=== PATIENT | male | born 1985 | race African-American/Black ===

== ENCOUNTER 2023-09-10 16:08 | Inpatient (IN) | payer OTHER ==
[2023-09-10 16:40] VITALS: BMI 22.2
[2023-09-10] MEDS ORDERED: BENZOCAINE/MENTHOL (CHLORASEPTIC ) LOZENGE MM PRN (18:39)
[2023-09-10] MEDS ORDERED: IBUPROFEN 400 MG TABLET (FP) PO PRN (18:39)
[2023-09-10] MEDS ORDERED: BENZONATATE 200 MG CAPSULE PO PRN (18:39)
[2023-09-10] MEDS ORDERED: guaiFENesin 600 MG TABLET.ER (FP) PO PRN (18:39)
[2023-09-10] MEDS ORDERED: ACETAMINOPHEN 325 MG TABLET (FP) PO PRN (18:39)
[2023-09-10] MEDS ORDERED: IBUPROFEN 600 MG TABLET (FP) PO PRN (18:39)
[2023-09-10] MEDS ORDERED: LOPERAMIDE HCL 2 MG CAPSULE PO PRN (18:39)
[2023-09-10] MEDS ORDERED: P-EPHED 60MG/TRIPROLIDI 2.5MG TABLET PO PRN (18:39)
[2023-09-10] MEDS ORDERED: POLYETHYLENE GLYCOL (HEALTHYLAX) 3350 17 GM PACKET PO PRN (18:39)
[2023-09-10] MEDS ORDERED: MAGNESIUM HYDROX 2400MG/30ML ORAL SUSPENSION 30 ML CUP PO PRN (18:39)
[2023-09-10] MEDS: MELATONIN 5 MG TABLETS PO SCH (21:44)
[2023-09-10] MEDS: THIAMINE 100 MG TABLET PO SCH (21:44)
[2023-09-10] MEDS: TUBERCULIN PPD 5 TU/0.1ML SYRINGE (IN PATIENT USE ONLY) ID ONE (21:45)
[2023-09-11] MEDS: PRENATAL VITAMINS W/ FOLIC ACID TABLET (FP) PO SCH (09:24)
[2023-09-11 13:26] LABS: POTASSIUM 3.7 mmol/L (3.5-5.1)
[2023-09-11 13:28] LABS: HEMATOCRIT 31.3 % (35.4-49); HEMOGLOBIN 10.4 GM/dL (11.7-16.9); MCH 29.2 pg (25.7-33.7); MCHC 33.2 g/dl (32.0-35.9); MEAN CELL VOLUME 87.9 fl (80-96); PLATELET COUNT 236 10^3/uL (134-434); RBC 3.56 M/mm3 (4.00-5.60); RDW 14.9 % (11.9-15.9); WHITE BLOOD COUNT 4.8 K/mm3 (4.0-10.0)
[2023-09-11 13:46] LABS: ALBUMIN 2.7 g/dl (3.4-5.0); BILIRUBIN,TOTAL 0.3 mg/dL (0.2-1); TOT PROT 8.1 g/dl (6.4-8.2)
[2023-09-11 13:47] LABS: BLOOD UREA NITROGEN 15.3 mg/dL (7-18)
[2023-09-11 13:49] LABS: CALCIUM 8.3 mg/dL (8.5-10.1)
[2023-09-11 14:23] LABS: SYPHILIS W/ RPR CONF REACTIVE (NONREACTIVE)
[2023-09-12] MEDS: BICTEGRAV/EMTRICIT/TENOFOV (BIKTARVY) 50-200-25 MG TABLET PO SCH (10:33)
[2023-09-13] MEDS: hydrOXYzine PAMOATE 25 MG CAPSULE (FP) PO PRN (22:51)
[2023-09-14 13:36] LABS: PH,URINE 7.5 (5.0-8.0); URINE APPEARANCE CLEAR; URINE BILIRUBIN NEGATIVE (NEGATIVE); URINE COLOR YELLOW; URINE GLUCOSE (UA) NEGATIVE (NEGATIVE); URINE KETONE NEGATIVE (NEGATIVE); URINE LEUK ESTERASE NEGATIVE (NEGATIVE); URINE NITRITE NEGATIVE (NEGATIVE); URINE PROTEIN NEGATIVE (NEGATIVE); URINE UROBILINOGEN 0.2 mg/dL (0.2-1.0)
[2023-09-20] MEDS: MAG HYDROX/AL HYDROX/SIMETH 30 ML UNIT-DOSE CUP PO PRN (15:52)
[2023-09-21] MEDS ORDERED: OLANZapine 5 MG TABLET PO PRN (22:00)
[2023-09-22 06:34] VITALS: RESP 18
[2023-09-25 11:18] LABS: INR 1.05 (0.83-1.09); PROTHROMBIN TIME (PATIENT) 11.8 SEC (9.7-13.0)
[2023-09-25 11:18] LABS: POTASSIUM 4.4 mmol/L (3.5-5.1)
[2023-09-25 11:24] LABS: BLOOD UREA NITROGEN 17.7 mg/dL (7-18); CALCIUM 9.2 mg/dL (8.5-10.1)
[2023-09-25 11:28] LABS: CREATININE 1.2 mg/dL (0.55-1.3)
[2023-09-25 11:29] LABS: BILIRUBIN,TOTAL 0.5 mg/dL (0.2-1); TOT PROT 10.1 g/dl (6.4-8.2)
[2023-09-25 11:35] LABS: ALBUMIN 3.5 g/dl (3.4-5.0)
[2023-09-25] MEDS: OLANZapine 5 MG TABLET PO SCH (21:12)
[2023-09-25] MEDS ORDERED: SUVOREXANT 10 MG TABLET PO PRN (22:00)
[2023-09-27 07:01] VITALS: BP 123/91; PULSE 85; TEMP 97.2
== END 2023-09-27 11:07 | disposition home or self-care (01) | DRG 772 ==
LOC: YASAS 16:08 → Y3W 19:13 → Y5N 09-22 06:38
PROVIDERS: ADMIT Allergy & Immunology; ATTEND Psychiatry & Neurology Pain Medicine
PROC: HZ42ZZZ Group Counseling for Substance Abuse Treatment, Cognitive-Behavioral (ICD-10-PCS; principal; 2023-09-10)
DX: F15.20 Other stimulant dependence, uncomplicated (principal); F25.9 Schizoaffective disorder, unspecified; F19.24 Other psychoactive substance dependence with psychoactive substance-induced mood disorder; Z21 Asymptomatic human immunodeficiency virus [HIV] infection status; G47.00 Insomnia, unspecified; Z79.899 Other long term (current) drug therapy; Z87.820 Personal history of traumatic brain injury
CPT/HCPCS: 36415; 80053; 80305; 80307; 81003; 82140; 85027; 85610; 86593; 86780; 86803; 87522; 87811; 93005; 93010